=== PATIENT | male | born 1975 | race Caucasian/White ===

== ENCOUNTER 2017-02-06 16:43 | Emergency (ER) | payer OTHER ==
[2017-02-06 16:56] VITALS: BP 149/93
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
== END 2017-02-06 17:37 | disposition home or self-care (01) ==
LOC: UCEAST 16:43
DX: G89.29 Other chronic pain (principal); M51.36 Other intervertebral disc degeneration, lumbar region; F12.10 Cannabis abuse, uncomplicated; F17.210 Nicotine dependence, cigarettes, uncomplicated; E03.9 Hypothyroidism, unspecified; J45.909 Unspecified asthma, uncomplicated
CPT/HCPCS: 99212; G0463

== ENCOUNTER 2017-02-24 15:44 | Emergency (ER) | payer OTHER ==
[2017-02-24 15:52] VITALS: BP 139/78
[2017-02-24] MEDS ORDERED: HYDROmorphone* 1 MG/ML 1 ML SYR IV ONE ×2 (16:48→17:48)
[2017-02-24] MEDS ORDERED: Ondansetron INJ* 2 MG/ML VIAL IV ONE (16:48)
[2017-02-24] MEDS ORDERED: NS 0.9% 1000 ML* 1,000 ML IV ONE (16:48)
[2017-02-24 17:30] LABS: Hematocrit 37 % (42-52); Hemoglobin 12.7 g/dl (14.0-18.0); Mean Corpuscular HGB Conc 34 g/dl (31-36); Mean Corpuscular Hemoglobin 29 pg (27-31); Mean Corpuscular Volume 86 fL (80-94); Mean Platelet Volume 8 um3 (7.4-10.4); Red Blood Count 4.32 10^6/ul (4.0-5.4); Red Cell Distribution Width 14 % (10.5-15); White Blood Count 9.8 10^3/ul (3.5-10.8)
[2017-02-24 17:44] LABS: Albumin 3.7 g/dL (3.2-5.2); BUN/Creatinine Ratio 6.3 (8-20); Calcium 8.6 mg/dL (8.6-10.3); EGFR African American 177.2 (>60); EGFR Non-African American 137.8 (>60); Globulin 2.9 g/dL (2-4); Total Bilirubin 0.2 mg/dL (0.2-1.0); Total Protein 6.6 g/dL (6.4-8.9)
[2017-02-24] MEDS ORDERED: LORazepam INJ* 2 MG/ML 1 ML VIAL IV PUSH ONE (17:48)
[2017-02-24] MEDS ORDERED: Iohexol 300* (CONTRAST) 10 ML SDV IV ONE (17:48)
[2017-02-24] MEDS ORDERED: LORazepam INJ* 2 MG/ML 1 ML VIAL ONE (17:51)
[2017-02-24 18:12] LABS: Potassium 3.6 mmol/L (3.5-5.0)
--- NOTE | 2017-02-24 18:18 | RAD ---
INDICATION: Fall from ladder COMPARISON: CT of the brain July 22, 2012 TECHNIQUE: Contiguous axial sections of the brain were obtained from the skull base to the vertex without contrast. FINDINGS: The ventricles, cisterns and sulci are within normal limits. The navarro-white matter differentiation is adequately maintained and there is no sulcal effacement. No significant focal abnormality or mass effect is present. There is no evidence for intracranial hemorrhage. No significant focal osseous abnormality is present. The visualized portion of the paranasal sinuses and mastoid air cells appear clear. IMPRESSION: Normal CT of the brain.
--- NOTE | 2017-02-24 18:53 | RAD ---
INDICATION: Fall from ladder COMPARISON: None. TECHNIQUE: Axial source images were acquired with coronal and sagittal reformatting. FINDINGS: The cervical vertebrae are normally aligned. There is no fracture or focal bony lesion. The canal and foramina appear widely patent. The odontoid and the atlantodental interval are normal. Mild degenerative changes include loss of intervertebral disc height. On the coronal view there is mild multilevel uncovertebral hypertrophy. The prevertebral soft tissues appear normal. The visualized soft tissue elements of the neck are normal. The visualized lung apices are clear. IMPRESSION: MILD DEGENERATIVE CHANGES OF THE CERVICAL SPINE WITHOUT ACUTE FRACTURE OR DISLOCATION.
--- NOTE | 2017-02-24 19:02 | RAD ---
INDICATION: Back and groin pain after falling off of the latter. COMPARISON: None. TECHNIQUE: Multidetector CT images were obtained from the lung apices to the ischial tuberosities with 100 mL Omnipaque 300IV and oral contrast. Specific reformats of the thoracic spine were created and independently reviewed. CHEST: The lungs are grossly clear without nodules, masses or other focal abnormality. There are no significant pleural effusions bilaterally. The heart and thoracic aorta are normal in size and morphology. There is no mediastinal or hilar lymphadenopathy. ABDOMEN \T\ PELVIS: The liver, spleen, pancreas and adrenal glands are grossly normal in appearance. The gallbladder is normal. The kidneys are normal in appearance without focal mass, calcification or signs of hydronephrosis. The small and large bowel are not distended. A normal appendix is identified in the right lower quadrant (axial image 61). There is no gross retroperitoneal or mesenteric lymphadenopathy. The pelvic viscera is normal in appearance. The abdominal aorta and iliac arteries are normal in course and diameter. There are no traumatic fractures in the spine, ribs or pelvis. Multilevel degenerative changes include loss of intervertebral disc height with mild anterior marginal osteophyte formation at the thoracic spine. There is a very faint grade 1 anterolisthesis of L5 over S1 with a same level bilateral pars interarticularis defect. This is a chronic appearance. There is no acute inflammatory change in the soft tissue surrounding the L5 level. IMPRESSION: 1. No CT evidence of acute traumatic fracture or traumatic solid organ injury. 2. 

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
== END 2017-02-24 20:45 | disposition home or self-care (01) ==
LOC: ED 15:44
DX: M54.9 Dorsalgia, unspecified (principal); M54.5 Low back pain; F17.210 Nicotine dependence, cigarettes, uncomplicated
CPT/HCPCS: 36415; 70450; 71260; 72125; 72128; 74177; 80053; 83605; 85025; 96374; 96375; 99282; J1170; J2060; J2405; Q9967

== ENCOUNTER 2017-03-02 11:14 | Emergency (ER) | payer OTHER ==
[2017-03-02 11:21] VITALS: BP 151/95
[2017-03-02] MEDS ORDERED: Ketorolac INJ* 30 MG/ML 1 ML VIAL IV PUSH ONE (11:42)
[2017-03-02] MEDS ORDERED: oxyCODONE/Acetamin 5/325 MG* TAB PO ONE (11:42)
[2017-03-02] MEDS ORDERED: Orphenadrine Citrate IV* 30 MG/ML 2 ML VIAL IV ONE (11:43)
[2017-03-02] MEDS ORDERED: Dexamethasone IV* 4 MG/ML 5 ML VIAL (20 MG) IVPB ONE (11:43)
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
[2017-03-02] MEDS ORDERED: oxyCODONE TAB* 5 MG TAB PO ONE (13:26)
== END 2017-03-02 13:43 | disposition home or self-care (01) ==
LOC: ED 11:14
DX: M54.5 Low back pain (principal); F17.210 Nicotine dependence, cigarettes, uncomplicated
CPT/HCPCS: 96374; 96375; 99283; A9270-GY; J1885; J2360

== ENCOUNTER 2017-05-11 09:43 | Emergency (ER) | payer OTHER ==
[2017-05-11 09:52] VITALS: BP 180/89
[2017-05-11] MEDS ORDERED: LORazepam TAB(*) 1 MG PO ONE (10:33)
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
== END 2017-05-11 11:34 | disposition home or self-care (01) ==
LOC: ED 09:43
DX: R07.9 Chest pain, unspecified (principal); F17.210 Nicotine dependence, cigarettes, uncomplicated; E11.8 Type 2 diabetes mellitus with unspecified complications; Z04.1 Encounter for examination and observation following transport accident
CPT/HCPCS: 71250; 99282; A9270-GY

== ENCOUNTER 2017-07-28 07:30 | Emergency (ER) | payer OTHER ==
[2017-07-28 08:05] VITALS: BP 140/80
[2017-07-28] MEDS ORDERED: Ketorolac INJ* 60 MG/2 ML VIAL IM ONE (08:11)
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
== END 2017-07-28 08:45 | disposition short-term general hospital (02) ==
LOC: UCEAST 07:30
DX: M54.6 Pain in thoracic spine (principal); E11.9 Type 2 diabetes mellitus without complications; J45.909 Unspecified asthma, uncomplicated; F17.210 Nicotine dependence, cigarettes, uncomplicated; M25.511 Pain in right shoulder
CPT/HCPCS: 96372; 99213; G0463; J1885

== ENCOUNTER 2017-09-21 09:50 | Observation (INO) | payer OTHER ==
[2017-09-21] MEDS ORDERED: Naloxone* 0.4 MG/ML 10 ML VIAL ONE (09:59)
[2017-09-21] MEDS ORDERED: NS 0.9% 1000 ML* 1,000 ML IV ONE (10:21)
[2017-09-21] MEDS ORDERED: Naloxone* 0.4 MG/ML 1 ML VIAL IV PUSH ONE (10:30)
[2017-09-21 10:36] LABS: Hematocrit 45 % (42-52); Mean Corpuscular HGB Conc 33 g/dl (31-36); Mean Corpuscular Hemoglobin 30 pg (27-31); Mean Corpuscular Volume 89 fL (80-94); Mean Platelet Volume 9 um3 (7.4-10.4); Red Cell Distribution Width 14 % (10.5-15); White Blood Count 15.4 10^3/ul (3.5-10.8)
[2017-09-21 10:51] LABS: Acetaminophen < 15 mcg/mL; Alcohol < 10 mg/dL (<10); Salicylate < 2.50 mg/dL (<30)
[2017-09-21 10:53] LABS: ALT 82 U/L (7-52); AST 85 U/L (13-39); Albumin 4.8 g/dL (3.2-5.2); Alkaline Phosphatase 72 U/L (34-104); BUN/Creatinine Ratio 14.9 (8-20); Blood Urea Nitrogen 26 mg/dL (6-24); CO2 Carbon Dioxide 27 mmol/L (22-32); Calcium 9.4 mg/dL (8.6-10.3); Chloride 96 mmol/L (101-111); Creatine Kinase 604 U/L (10-223); EGFR African American 55.2 (>60); Globulin 3.3 g/dL (2-4); Glucose 171 mg/dL (70-100); Sodium 132 mmol/L (133-145); Total Protein 8.1 g/dL (6.4-8.9)
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
[2017-09-21 11:06] LABS: Anion Gap 9 mmol/L (2-11); Potassium 7.4 mmol/L (3.5-5.0)
[2017-09-21] MEDS ORDERED: Calcium CHLORIDE 10% SYRINGE* 1 GM/10 ML IV ONE (11:18)
[2017-09-21] MEDS ORDERED: Dextrose 50% VIAL 50 ml IV ONE (11:19)
[2017-09-21] MEDS ORDERED: Insulin REGULAR(*) 1 UNITS UNIT IV PUSH ONE (11:20)
[2017-09-21] MEDS ORDERED: Cyclobenzaprine TAB* 10 MG PO PRN (12:48)
[2017-09-21] MEDS ORDERED: cloNIDine TAB* 0.1 MG PO PRN (12:48)
[2017-09-21] MEDS ORDERED: Albuterol HFA INHALER* 8 gm MDI INH PRN (12:48)
[2017-09-21] MEDS ORDERED: traZODone TAB* 50 MG TAB PO PRN (12:48)
[2017-09-21] MEDS ORDERED: LORazepam INJ* 2 MG/ML 1 ML VIAL IV PUSH PRN (12:48)
[2017-09-21 12:51] LABS: BUN/Creatinine Ratio 18.9 (8-20); Calcium 8.1 mg/dL (8.6-10.3); EGFR Non-African American 62.2 (>60)
[2017-09-21 12:52] LABS: Potassium 6.4 mmol/L (3.5-5.0)
[2017-09-21] MEDS ORDERED: Ondansetron INJ* 2 MG/ML VIAL IV PRN (12:52)
[2017-09-21] MEDS ORDERED: Nicotine Inhaler* 10 MG AMP INH PRN (12:52)
[2017-09-21] MEDS ORDERED: Dextrose 50% Syringe 50 ML* 25 GM/50 ML SYRINGE IV PUSH PRN (12:52)
[2017-09-21] MEDS ORDERED: Nicotine GUM* 2 MG PO PRN (12:52)
[2017-09-21] MEDS ORDERED: Naloxone* 0.4 MG/ML 1 ML VIAL IV PUSH PRN (12:55)
[2017-09-21] MEDS ORDERED: Gabapentin CAP(*) 300 MG PO SCH (13:00)
[2017-09-21] MEDS ORDERED: Lidocaine PATCH 5%* 1 PATCH TRANSDERM SCH ×2 (13:00→21:00)
[2017-09-21] MEDS ORDERED: Pantoprazole IV* 40 MG IV SCH (13:00)
[2017-09-21] MEDS ORDERED: NS 0.9% 1000 ML* 1,000 ML IV SCH (13:00)
[2017-09-21] MEDS ORDERED: Enoxaparin(*) 40 MG/0.4 ML SYR SUBCUT SCH (13:00)
[2017-09-21] MEDS ORDERED: Nicotine PATCH 21 MG/24 HR* PATCH TRANSDERM SCH (13:00)
[2017-09-21 13:11] LABS: Troponin I 0.1 ng/mL (<0.04)
[2017-09-21] MEDS ORDERED: LORazepam INJ* 2 MG/ML 1 ML VIAL IV PUSH ONE (13:29)
[2017-09-21 13:35] VITALS: BP 101/73
[2017-09-21] MEDS ORDERED: Mouth Piece, Nicotine* 1 EACH CARTRIDGE INH ONE (14:00)
[2017-09-21] MEDS ORDERED: Sodium Polystyrene ORAL.SOL* 15 GM/60 ML BTL PO ONE (14:24)
[2017-09-21] MEDS ORDERED: Sodium Polystyrene ORAL.SOL* 15 GM/60 ML BTL ONE ×2 (14:26→14:30)
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
[2017-09-21] MEDS ORDERED: Insulin LISPRO* 1 UNITS UNIT SUBCUT SCH (16:30)
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
[2017-09-21] MEDS ORDERED: Lidocaine Patch REMOVE* 1 NOTE MISC SCH (21:00)
[2017-09-21] MEDS ORDERED: celeCOXIB CAP* 200 MG PO SCH (21:00)
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
== END 2017-09-21 15:00 | disposition left against medical advice (07) ==
LOC: ED 09:50 → INTOOBSV 12:21 → ICU 12:21
PROVIDERS: ADMIT Internal Medicine; ATTEND Internal Medicine
DX: T40.2X4A Poisoning by other opioids, undetermined, initial encounter (principal); R41.82 Altered mental status, unspecified; Y92.009 Unspecified place in unspecified non-institutional (private) residence as the place of occurrence of the external cause; J96.01 Acute respiratory failure with hypoxia; E87.5 Hyperkalemia; N17.9 Acute kidney failure, unspecified; E87.2 Acidosis; R74.8 Abnormal levels of other serum enzymes; R00.0 Tachycardia, unspecified; D72.829 Elevated white blood cell count, unspecified; E11.9 Type 2 diabetes mellitus without complications; Z79.84 Long term (current) use of oral hypoglycemic drugs; K21.9 Gastro-esophageal reflux disease without esophagitis; J45.909 Unspecified asthma, uncomplicated; F17.210 Nicotine dependence, cigarettes, uncomplicated; Z79.899 Other long term (current) drug therapy; M54.16 Radiculopathy, lumbar region; E78.00 Pure hypercholesterolemia, unspecified
CPT/HCPCS: 36415; 71010; 80048; 80053; 80320; 80329; 82550; 83036; 83605; 83880; 84484; 85025; 93005; 99282; A9270-GY; G0378; G0480; J2060; J2310

== ENCOUNTER 2021-01-08 15:05 | Inpatient (IN) ==
[2021-01-08] MEDS ORDERED: NS 0.9% 1000 ml BAG 1,000 ML IV ONE ×3 (15:13→17:42)
[2021-01-08 15:57] LABS: ABS Basophils 0.1 10^3/ul (0-0.2); ABS Eosinophils 0.1 10^3/ul (0-0.6); ABS Lymphocytes 1.3 10^3/ul (1.0-4.8); ABS Monocytes 0.7 10^3/ul (0-0.8); ABS Neutrophils 9.7 10^3/ul (1.5-7.7); Eosinophil % 0.4 %; Hematocrit 62 % (42-52); Hemoglobin 18.9 g/dL (14.0-18.0); Lymphocyte % 11.1 %; Mean Corpuscular HGB Conc 30 g/dL (31-36); Mean Corpuscular Hemoglobin 30 pg (27-31); Mean Corpuscular Volume 98 fL (80-94); Mean Platelet Volume 10.3 fL (7.4-10.4); Nucleated Red Blood Cells % 0.1; Platelet Count 327 10^3/uL (150-450); Red Blood Count 6.35 10^6 /uL (4.18-5.48); Red Cell Distribution Width 15 % (10-15); White Blood Count 11.7 10^3/uL (3.5-10.8)
[2021-01-08] MEDS ORDERED: LORazepam 2 mg VIAL 1 ml IV PUSH ONE (15:58)
[2021-01-08] MEDS ORDERED: diPHENhydraMINE IV 50 MG/ML 1 ml VIAL (BENADRYL) IV ONE (15:58)
[2021-01-08] MEDS ORDERED: Lorazepam PYXIS KEY PRN (15:58)
[2021-01-08] MEDS ORDERED: Haloperidol 5 mg/ml SDV IV/IM 5 MG/ML AMP IM ONE (15:58)
[2021-01-08] MEDS ORDERED: LORazepam 2 mg VIAL 1 ml ONE (15:59)
[2021-01-08 16:07] LABS: Urine Appearance Clear; Urine Bilirubin Negative (Negative); Urine Blood Negative (Negative); Urine Color Straw; Urine Glucose 3+(>=500 mg/dL) (Negative); Urine Ketones Negative (Negative); Urine Nitrite Negative (Negative); Urine Protein Negative (Negative); Urine Specific Gravity 1.028 (1.002-1.030); Urine Urobilinogen Negative (Negative)
[2021-01-08] MEDS ORDERED: Propofol 10 mg/ml 100 ML BTL 100 ML IV ONE (16:20)
[2021-01-08] MEDS ORDERED: Etomidate 20 mg/10 ml 2 MG/ML 10 ml VIAL IV ONE (16:20)
[2021-01-08] MEDS ORDERED: Rocuronium 50 mg VIAL 10 mg/ml 5 ml VIAL (50 mg) IV ONE (16:20)
[2021-01-08 16:22] LABS: INR 0.94 (0.82-1.09)
[2021-01-08] MEDS ORDERED: Propofol 10 mg/ml 100 ML BTL 100 ML ONE (16:26)
[2021-01-08 16:37] LABS: Albumin 4.8 g/dL (3.2-5.2); CO2 Carbon Dioxide 27 mmol/L (22-32); Calcium 11.6 mg/dL (8.6-10.3); Chloride 84 mmol/L (101-111); Sodium 126 mmol/L (135-145)
[2021-01-08 16:38] LABS: Anion Gap 15 mmol/L (2-11)
[2021-01-08 16:43] LABS: BUN/Creatinine Ratio 22.5 (8-20); Blood Urea Nitrogen 54 mg/dL (6-24); EGFR African American 35.6 (>60); EGFR Non-African American 29.4 (>60)
[2021-01-08 16:44] LABS: Alkaline Phosphatase 164 U/L (34-104); Globulin 4.6 g/dL (2-4); Lipase 83 U/L (11.0-82.0); Total Protein 9.4 g/dL (6.4-8.9)
[2021-01-08 16:45] LABS: Troponin I 0.03 ng/mL (<0.03)
[2021-01-08 16:50] LABS: Urine Benzodiazepine Screen None Detected (None Detect); Urine Cannabinoids Screen None Detected (None Detect); Urine Opiates Screen None Detected (None Detect)
[2021-01-08 16:53] LABS: TSH Ultra Thyroid Stim Horm 1.69 mcIU/mL (0.34-5.60)
[2021-01-08 16:55] LABS: Acetaminophen < 15 mcg/mL; Alcohol, S < 10 mg/dL (<10); Salicylate < 2.50 mg/dL (<30)
[2021-01-08 17:09] LABS: ALT 37 U/L (7-52); Creatine Kinase 128 U/L (10-223)
[2021-01-08 17:11] LABS: Glucose 1793 mg/dL (70-100)
[2021-01-08] MEDS ORDERED: NS 0.9% w/ 20 Meq KCL 1000 ml 1,000 ML IV SCH (18:00)
[2021-01-08] MEDS ORDERED: [UNRECOGNIZED DRUG - REMARK] IV ONE (18:00)
[2021-01-08] MEDS ORDERED: Propofol 10 mg/ml 100 ML BTL 100 ML IV SCH (18:00)
[2021-01-08] MEDS ORDERED: Insulin REGULAR drip 100 units/100 ml per Titration Protocol IV SCH (18:00)
[2021-01-08] MEDS: Pantoprazole VIAL 40 MG VIAL IV SCH (18:06)
[2021-01-08] MEDS ORDERED: Lactated Ringers 1000 ml BAG 1,000 ML IV SCH (20:00)
[2021-01-08] MEDS ORDERED: fentaNYL INFUSION 50 MCG/ML 2,500 MCG/50 ML BAG IV SCH (20:00)
[2021-01-08] MEDS ORDERED: fentaNYL 100 mcg/2 ml 50 MCG/ML VIAL ONE (20:16)
[2021-01-08 20:19] LABS: Glucose Confirmatory 1168 mg/dL (70-100)
[2021-01-08 20:46] LABS: Chloride, Whole Blood 117 mmol/L (98-107); Potassium, Whole Blood 3.1 mmol/L (3.4-4.5); Sodium, Whole Blood 159 mmol/L (136-145)
[2021-01-08 20:52] LABS: Amylase 23 U/L (29-103); BUN/Creatinine Ratio 27.7 (8-20); Blood Urea Nitrogen 52 mg/dL (6-24); CO2 Carbon Dioxide 32 mmol/L (22-32); Calcium 10.5 mg/dL (8.6-10.3); Cholesterol 312 mg/dL; EGFR African American 47.2 (>60); HDL Cholesterol 24.8 mg/dL
[2021-01-08 21:09] LABS: Anion Gap 9 mmol/L (2-11); Chloride 112 mmol/L (101-111); Glucose 880 mg/dL (70-100); Sodium 153 mmol/L (135-145); Triglycerides 1828 mg/dL
[2021-01-08 21:22] LABS: LDL Cholesterol Direct 90 mg/dL
[2021-01-08 21:54] LABS: Glucose Confirmatory 706 mg/dL (70-100)
[2021-01-08 22:16] LABS: Potassium, Whole Blood 4.5 mmol/L (3.4-4.5)
[2021-01-08] MEDS ORDERED: Insulin Infusion 100unit/100mL 100 UNIT/100 ML BAG IV SCH (22:18)
[2021-01-08 22:30] LABS: Phosphorus 2.4 mg/dL (2.5-5.0)
[2021-01-08] MEDS ORDERED: Piperacillin/Tazobac ADVAN 3.375 GM in NS 0.9% 100 ml BAG 100 ML IV ONE (22:36)
[2021-01-08 22:39] LABS: Urine Chloride Concentration < 22 mmol/L; Urine Potassium Concentration 32.2 mmol/L; Urine Sodium Concentration < 18 mmol/L
[2021-01-08] MEDS ORDERED: Zosyn per Pharmacy NOTE FOLLOW UP SCH (23:00)
[2021-01-08] MEDS ORDERED: Acetaminophen IV 1 GM/100ML 100 ML IVPB ONE (23:06)
[2021-01-08 23:18] LABS: Influenza A Molecular Negative (Negative); Influenza B Molecular Negative (Negative)
[2021-01-08] MEDS: Midazolam 50 MG VIAL IV DRIP 50 ML IV SCH (23:23)
[2021-01-08] MEDS: Potassium Chloride IV 40 MEQ in Lactated Ringers 1000 ml BAG 1,000 ML IVPB SCH (23:26)
[2021-01-08] MEDS: Lactated Ringers 1000 ml BAG 1,000 ML IV SCH (23:26)
[2021-01-09 00:38] LABS: Calcium 9.9 mg/dL (8.6-10.3); Potassium 4.4 mmol/L (3.5-5.0)
[2021-01-09 00:43] LABS: BUN/Creatinine Ratio 31.7 (8-20); EGFR African American 63.7 (>60); EGFR Non-African American 52.6 (>60)
[2021-01-09 00:48] LABS: Glucose Confirmatory 474 mg/dL (70-100)
[2021-01-09 01:02] LABS: Magnesium 2.7 mg/dL (1.9-2.7)
[2021-01-09 01:07] LABS: Phosphorus 2.9 mg/dL (2.5-5.0)
[2021-01-09] MEDS: Lactated Ringers 1000 ml BAG 1,000 ML IV SCH ×2 (01:35→06:20)
[2021-01-09] MEDS: Lactated Ringers 1000 ml BAG 1,000 ML IV ONE (01:45)
[2021-01-09] MEDS: Chlorhexidine MOUTHWASH 0.12% 15 ML UDC SWISH SPIT SCH ×4 (02:46→22:24)
[2021-01-09] MEDS: Heparin 5000 UNITS/ML 1 mL VIAL SUBCUT SCH ×4 (03:11→22:24)
[2021-01-09 03:55] LABS: ABS Eosinophils 0.2 10^3/ul (0-0.6); ABS Lymphocytes 3.7 10^3/ul (1.0-4.8); ABS Monocytes 0.7 10^3/ul (0-0.8); ABS Neutrophils 7.8 10^3/ul (1.5-7.7); Eosinophil % 1.3 %; Hematocrit 43 % (42-52); Hemoglobin 14.4 g/dL (14.0-18.0); Lymphocyte % 29.7 %; Mean Corpuscular HGB Conc 34 g/dL (31-36); Mean Corpuscular Hemoglobin 28 pg (27-31); Mean Corpuscular Volume 85 fL (80-94); Mean Platelet Volume 8.6 fL (7.4-10.4); Platelet Count 149 10^3/uL (150-450); Red Blood Count 5.05 10^6 /uL (4.18-5.48); Red Cell Distribution Width 13 % (10-15); White Blood Count 12.4 10^3/uL (3.5-10.8)
[2021-01-09] MEDS: ZOSYN 3.375 GM Q8H per EXTENDED INFUSION IV SCH ×3 (04:05→20:32)
[2021-01-09 04:12] LABS: ALT 26 U/L (7-52); AST 24 U/L (13-39); Albumin 3.1 g/dL (3.2-5.2); Alkaline Phosphatase 90 U/L (34-104); BUN/Creatinine Ratio 29.5 (8-20); Blood Urea Nitrogen 36 mg/dL (6-24); CO2 Carbon Dioxide 36 mmol/L (22-32); Calcium 9.1 mg/dL (8.6-10.3); EGFR African American 77.7 (>60); EGFR Non-African American 64.2 (>60); Glucose 315 mg/dL (70-100); Magnesium 2.1 mg/dL (1.9-2.7); Phosphorus 2.7 mg/dL (2.5-5.0); Potassium 3.9 mmol/L (3.5-5.0); Total Protein 6.1 g/dL (6.4-8.9); Triglycerides 784 mg/dL
[2021-01-09 04:17] LABS: Anion Gap 3 mmol/L (2-11); Chloride 121 mmol/L (101-111); Sodium 160 mmol/L (135-145)
[2021-01-09] MEDS: D5W 1/2 NS 40 Meq KCL 1000 ml 1,000 ML IV SCH ×2 (04:36→10:15)
[2021-01-09] MEDS: NS 0.9% 1000 ml BAG 1,000 ML IV ONE ×2 (04:38→06:20)
[2021-01-09] MEDS ORDERED: Insulin GLARGINE 100 un/ml 10 ml VIAL SUBCUT ONE (05:09)
[2021-01-09] MEDS: Potassium Chloride IV 40 MEQ in Lactated Ringers 1000 ml BAG 1,000 ML IVPB SCH (06:20)
[2021-01-09] MEDS ORDERED: NS 0.9% 1000 ml BAG 1,000 ML IV ONE ×2 (06:45→23:15)
[2021-01-09] MEDS: Dexmedetomidine 1,000 MCG in NS 0.9% 250 ml 240 ML IV SCH (08:36)
[2021-01-09 08:46] LABS: BUN/Creatinine Ratio 24.8 (8-20); Blood Urea Nitrogen 28 mg/dL (6-24); CO2 Carbon Dioxide 33 mmol/L (22-32); Calcium 7.8 mg/dL (8.6-10.3); EGFR African American 84.9 (>60); EGFR Non-African American 70.2 (>60); Glucose 333 mg/dL (70-100); Potassium 3.8 mmol/L (3.5-5.0)
[2021-01-09 08:49] LABS: Anion Gap 3 mmol/L (2-11); Chloride 125 mmol/L (101-111); Sodium 161 mmol/L (135-145)
[2021-01-09 08:50] LABS: Troponin I 0.06 ng/mL (<0.03)
[2021-01-09] MEDS: Pantoprazole VIAL 40 MG VIAL IV SCH (09:36)
[2021-01-09 11:59] LABS: BUN/Creatinine Ratio 22.9 (8-20); Calcium 7.9 mg/dL (8.6-10.3); EGFR African American 92.4 (>60); EGFR Non-African American 76.4 (>60); Potassium 3.7 mmol/L (3.5-5.0)
[2021-01-09] MEDS ORDERED: Acetaminophen IV 1 GM/100ML 100 ML ONE (13:17)
[2021-01-09] MEDS: Acetaminophen IV 1 GM/100ML 100 ML IVPB PRN (13:18)
[2021-01-09] MEDS ORDERED: Dextrose 50% Syringe 50 ml 25 GM/50 ML SYRINGE IV PUSH PRN (15:23)
[2021-01-09] MEDS: NS 0.45% KCl 20 Meq 1000 ml 1,000 ML IV SCH (16:27)
[2021-01-09 18:24] LABS: Troponin I 0.07 ng/mL (<0.03)
[2021-01-09] MEDS ORDERED: Midazolam 2 mg/2 ml VIAL 1 mg/ml 2 ml VIAL (2 mg) IV SLOW PU ONE ×2 (19:41→23:52)
[2021-01-09 20:11] LABS: BUN/Creatinine Ratio 17.8 (8-20); Blood Urea Nitrogen 19 mg/dL (6-24); CO2 Carbon Dioxide 34 mmol/L (22-32); Calcium 7.8 mg/dL (8.6-10.3); EGFR African American 90.4 (>60); EGFR Non-African American 74.7 (>60); Glucose 265 mg/dL (70-100); Potassium 3.7 mmol/L (3.5-5.0)
[2021-01-09 20:19] LABS: Chloride 125 mmol/L (101-111); Sodium 159 mmol/L (135-145)
[2021-01-09] MEDS ORDERED: Midazolam 5 mg/5 ml VIAL 1 mg/ml 5 ml VIAL (5 mg) ONE (22:41)
[2021-01-09] MEDS ORDERED: fentaNYL 100 mcg/2 ml 50 MCG/ML VIAL ONE (22:43)
[2021-01-09] MEDS ORDERED: Midazolam 5 mg/5 ml VIAL 1 mg/ml 5 ml VIAL (5 mg) IV SLOW PU ONE (22:47)
[2021-01-09] MEDS ORDERED: Midazolam 2 mg/2 ml VIAL 1 mg/ml 2 ml VIAL (2 mg) ONE (23:54)
[2021-01-10 00:12] LABS: BUN/Creatinine Ratio 18.1 (8-20); Calcium 7.3 mg/dL (8.6-10.3); EGFR African American 74.2 (>60); EGFR Non-African American 61.3 (>60); Potassium 4.3 mmol/L (3.5-5.0)
[2021-01-10] MEDS: NS 0.45% KCl 20 Meq 1000 ml 1,000 ML IV SCH ×2 (00:49→08:59)
[2021-01-10] MEDS ORDERED: Lactated Ringers 1000 ml BAG 1,000 ML IV ONE (02:32)
[2021-01-10] MEDS ORDERED: NS 0.9% 1000 ml BAG 1,000 ML IV ONE (02:32)
[2021-01-10] MEDS ORDERED: Vancomycin 1,250 MG in NS 0.9% 250 ml 250 ML IVPB ONE (04:30)
[2021-01-10] MEDS: Acetaminophen IV 1 GM/100ML 100 ML IVPB PRN (04:35)
[2021-01-10] MEDS: ZOSYN 3.375 GM Q8H per EXTENDED INFUSION IV SCH ×3 (04:36→21:35)
[2021-01-10] MEDS ORDERED: Vancomycin per Pharmacy 1 EA NOTE FOLLOW UP SCH (05:00)
[2021-01-10] MEDS ORDERED: Norepinephrine 16MCG/ML IVPRE 4,000 MCG/250 ML BAG IV SCH (05:00)
[2021-01-10] MEDS: Heparin 5000 UNITS/ML 1 mL VIAL SUBCUT SCH ×3 (06:41→21:36)
[2021-01-10 06:42] LABS: Albumin 2.4 g/dL (3.2-5.2); Magnesium 1.4 mg/dL (1.9-2.7); Potassium 4.1 mmol/L (3.5-5.0); Total Bilirubin 0.5 mg/dL (0.2-1.0)
[2021-01-10] MEDS ORDERED: Magnesium Sulfate 2 gm BAG 2 GM/50 ML BAG IVPB ONE (06:43)
[2021-01-10 06:49] LABS: BUN/Creatinine Ratio 19.4 (8-20); EGFR African American 72.9 (>60); EGFR Non-African American 60.2 (>60); Globulin 2.3 g/dL (2-4); Phosphorus 1.7 mg/dL (2.5-5.0); Total Protein 4.7 g/dL (6.4-8.9)
[2021-01-10] MEDS: Pantoprazole VIAL 40 MG VIAL IV SCH (07:45)
[2021-01-10] MEDS: Chlorhexidine MOUTHWASH 0.12% 15 ML UDC SWISH SPIT SCH ×4 (07:45→17:36)
[2021-01-10] MEDS ORDERED: Insulin GLARGINE 100 un/ml 10 ml VIAL SUBCUT SCH (09:00)
[2021-01-10 09:14] LABS: ABS Basophils 0.1 10^3/ul (0-0.2); ABS Eosinophils 0.5 10^3/ul (0-0.6); ABS Lymphocytes 3.6 10^3/ul (1.0-4.8); ABS Monocytes 0.7 10^3/ul (0-0.8); ABS Neutrophils 5.9 10^3/ul (1.5-7.7); Eosinophil % 4.4 %; Hematocrit 35 % (42-52); Hemoglobin 11.4 g/dL (14.0-18.0); Lymphocyte % 33.3 %; Mean Corpuscular HGB Conc 33 g/dL (31-36); Mean Corpuscular Hemoglobin 29 pg (27-31); Mean Corpuscular Volume 88 fL (80-94); Nucleated Red Blood Cells % 0.1; Red Blood Count 3.96 10^6 /uL (4.18-5.48); Red Cell Distribution Width 14 % (10-15); White Blood Count 10.8 10^3/uL (3.5-10.8)
[2021-01-10 10:05] LABS: C Reactive Protein 9.62 mg/L (<8.01)
[2021-01-10] MEDS: Dexmedetomidine 1,000 MCG in NS 0.9% 250 ml 240 ML IV SCH (10:30)
[2021-01-10] MEDS: Midazolam 50 MG VIAL IV DRIP 50 ML IV SCH (11:20)
[2021-01-10 12:03] LABS: Mean Platelet Volume 8.6 fL (7.4-10.4); Platelet Count 93 10^3/uL (150-450)
[2021-01-10 12:50] LABS: Calcium 6.9 mg/dL (8.6-10.3); EGFR Non-African American 66.1 (>60); Potassium 3.8 mmol/L (3.5-5.0)
[2021-01-10] MEDS ORDERED: Potassium Phosphate IV 10 MMOLE in NS 0.9% 250 ml 250 ML IVPB ONE (14:00)
[2021-01-10] MEDS ORDERED: Furosemide 20 mg/2 ml IV VIAL IV SLOW PU ONE (17:34)
[2021-01-10] MEDS: Vancomycin 1,250 MG in NS 0.9% 250 ml 250 ML IVPB SCH (17:35)
[2021-01-10] MEDS ORDERED: KCL 10 MEQ/50 ML IVPREMIX 10 MEQ/50 ML BAG IV SCH (17:54)
[2021-01-10] MEDS ORDERED: Succinylcholine 200 mg VIAL 20 mg/ml 10 ml VIAL (200 mg) ONE (18:07)
[2021-01-10 21:36] LABS: ABS Eosinophils 0.3 10^3/ul (0-0.6); ABS Lymphocytes 2.1 10^3/ul (1.0-4.8); ABS Monocytes 0.4 10^3/ul (0-0.8); ABS Neutrophils 4.5 10^3/ul (1.5-7.7); Eosinophil % 4.4 %; Hematocrit 34 % (42-52); Hemoglobin 11.4 g/dL (14.0-18.0); Lymphocyte % 28.3 %; Mean Corpuscular HGB Conc 33 g/dL (31-36); Mean Corpuscular Hemoglobin 29 pg (27-31); Mean Corpuscular Volume 86 fL (80-94); Nucleated Red Blood Cells % 0.1; Platelet Count 85 10^3/uL (150-450); Red Blood Count 3.95 10^6 /uL (4.18-5.48); Red Cell Distribution Width 13 % (10-15); White Blood Count 7.4 10^3/uL (3.5-10.8)
[2021-01-10 21:55] LABS: Calcium 6.9 mg/dL (8.6-10.3); EGFR African American 92.4 (>60); EGFR Non-African American 76.4 (>60)
[2021-01-11] MEDS: ZOSYN 3.375 GM Q8H per EXTENDED INFUSION IV SCH (04:08)
[2021-01-11 04:25] LABS: ABS Eosinophils 0.3 10^3/ul (0-0.6); ABS Lymphocytes 2.2 10^3/ul (1.0-4.8); ABS Monocytes 0.3 10^3/ul (0-0.8); ABS Neutrophils 3.6 10^3/ul (1.5-7.7); Eosinophil % 4.6 %; Hematocrit 34 % (42-52); Hemoglobin 11.1 g/dL (14.0-18.0); Lymphocyte % 34.7 %; Mean Corpuscular HGB Conc 33 g/dL (31-36); Mean Corpuscular Hemoglobin 29 pg (27-31); Mean Corpuscular Volume 87 fL (80-94); Mean Platelet Volume 8.7 fL (7.4-10.4); Platelet Count 77 10^3/uL (150-450); Red Blood Count 3.86 10^6 /uL (4.18-5.48); Red Cell Distribution Width 13 % (10-15); White Blood Count 6.5 10^3/uL (3.5-10.8)
[2021-01-11 04:37] LABS: Albumin 2.6 g/dL (3.2-5.2); BUN/Creatinine Ratio 21.6 (8-20); Calcium 6.9 mg/dL (8.6-10.3); EGFR African American 113.3 (>60); EGFR Non-African American 93.6 (>60); Globulin 2.6 g/dL (2-4); Potassium 3.5 mmol/L (3.5-5.0); Total Bilirubin 0.5 mg/dL (0.2-1.0); Total Protein 5.2 g/dL (6.4-8.9)
[2021-01-11] MEDS ORDERED: Potassium Phosphate IV 10 MMOLE in NS 0.9% 250 ml 250 ML IVPB ONE (04:54)
[2021-01-11] MEDS ORDERED: KCL 20 MEQ/100 ML IVPREMIX 20 MEQ/100 ML BAG IV ONE (04:54)
[2021-01-11] MEDS: Vancomycin 1,250 MG in NS 0.9% 250 ml 250 ML IVPB SCH ×2 (06:22→18:36)
[2021-01-11] MEDS: Heparin 5000 UNITS/ML 1 mL VIAL SUBCUT SCH (06:34)
[2021-01-11 08:31] LABS: INR 1.07 (0.82-1.09)
[2021-01-11] MEDS ORDERED: Insulin GLARGINE 100 un/ml 10 ml VIAL SUBCUT SCH (09:00)
[2021-01-11] MEDS ORDERED: Lorazepam PYXIS KEY ONE (09:22)
[2021-01-11] MEDS ORDERED: Haloperidol 5 mg/ml SDV IV/IM 5 MG/ML AMP ONE (09:22)
[2021-01-11] MEDS ORDERED: LORazepam 2 mg VIAL 1 ml ONE (09:34)
[2021-01-11] MEDS ORDERED: LORazepam 2 mg VIAL 1 ml IV PUSH ONE (09:42)
[2021-01-11] MEDS ORDERED: Lorazepam PYXIS KEY PRN (09:42)
[2021-01-11] MEDS ORDERED: Haloperidol 5 mg/ml SDV IV/IM 5 MG/ML AMP IV SLOW PU ONE (09:43)
[2021-01-11] MEDS ORDERED: diPHENhydraMINE IV 50 MG/ML 1 ml VIAL (BENADRYL) IV ONE (09:50)
[2021-01-11] MEDS: LORazepam 2 mg VIAL 1 ml ONE (09:57)
[2021-01-11] MEDS: diPHENhydraMINE IV 50 MG/ML 1 ml VIAL (BENADRYL) ONE (09:59)
[2021-01-11] MEDS ORDERED: Furosemide 20 mg/2 ml IV VIAL IV SLOW PU ONE (10:56)
[2021-01-11] MEDS ORDERED: D5W 1000 ml BAG 1,000 ML IV SCH (11:00)
[2021-01-11] MEDS ORDERED: Albuterol/Ipratropium NEB.SOL (2.5/0.5 MG) 3 ML NEB.SOLN INH SCH (11:00)
[2021-01-11] MEDS ORDERED: Albuterol/Ipratropium NEB.SOL (2.5/0.5 MG) 3 ML NEB.SOLN INH PRN (11:02)
[2021-01-11] MEDS: KCL 10 MEQ/50 ML IVPREMIX 10 MEQ/50 ML BAG IV SCH ×2 (11:38→13:41)
[2021-01-11] MEDS: Pantoprazole VIAL 40 MG VIAL IV SCH (11:38)
[2021-01-11] MEDS: cefTRIAXone 2 GM ADDV.VIAL 2 GM in NS 0.9% 100 ml BAG 100 ML IV SCH (11:39)
[2021-01-11] MEDS ORDERED: Perflutren Lipid Microsphere 3 ML VIAL ONE (13:20)
[2021-01-11 14:54] LABS: BUN/Creatinine Ratio 20.9 (8-20); Calcium 6.8 mg/dL (8.6-10.3); EGFR Non-African American 90.1 (>60); Potassium 4.4 mmol/L (3.5-5.0)
[2021-01-11 18:13] LABS: Troponin I 0.01 ng/mL (<0.03)
[2021-01-11] MEDS: Dexmedetomidine 1,000 MCG in NS 0.9% 250 ml 240 ML IV SCH (19:02)
[2021-01-12 04:15] LABS: ABS Eosinophils 0.2 10^3/ul (0-0.6); ABS Lymphocytes 1.6 10^3/ul (1.0-4.8); ABS Monocytes 0.3 10^3/ul (0-0.8); ABS Neutrophils 2.9 10^3/ul (1.5-7.7); Eosinophil % 4.2 %; Hematocrit 34 % (42-52); Hemoglobin 11.3 g/dL (14.0-18.0); Lymphocyte % 31.6 %; Mean Corpuscular HGB Conc 34 g/dL (31-36); Mean Corpuscular Hemoglobin 29 pg (27-31); Mean Corpuscular Volume 86 fL (80-94); Mean Platelet Volume 8.9 fL (7.4-10.4); Nucleated Red Blood Cells % 0.1; Platelet Count 79 10^3/uL (150-450); Red Cell Distribution Width 13 % (10-15)
[2021-01-12 04:29] LABS: Albumin 2.6 g/dL (3.2-5.2); BUN/Creatinine Ratio 21.1 (8-20); Calcium 7.2 mg/dL (8.6-10.3); EGFR African American 134.2 (>60); EGFR Non-African American 110.9 (>60); Globulin 2.6 g/dL (2-4); Magnesium 1.9 mg/dL (1.9-2.7); Phosphorus 1.9 mg/dL (2.5-5.0); Potassium 3.7 mmol/L (3.5-5.0); Total Bilirubin 0.5 mg/dL (0.2-1.0); Total Protein 5.2 g/dL (6.4-8.9)
[2021-01-12] MEDS ORDERED: Vancomycin Trough Check NOTE FOLLOW UP ONE (06:00)
[2021-01-12] MEDS: Vancomycin 1,250 MG in NS 0.9% 250 ml 250 ML IVPB SCH ×3 (06:25→22:23)
[2021-01-12] MEDS ORDERED: Potassium Phosphate IV 10 MMOLE in NS 0.9% 250 ml 250 ML IVPB ONE (08:00)
[2021-01-12] MEDS: Dexmedetomidine 1,000 MCG in NS 0.9% 250 ml 240 ML IV SCH ×2 (08:58→20:42)
[2021-01-12] MEDS ORDERED: Insulin GLARGINE 100 un/ml 10 ml VIAL SUBCUT SCH (09:00)
[2021-01-12] MEDS: Pantoprazole VIAL 40 MG VIAL IV SCH (09:03)
[2021-01-12] MEDS ORDERED: diPHENhydraMINE IV 50 MG/ML 1 ml VIAL (BENADRYL) ONE (09:13)
[2021-01-12] MEDS ORDERED: Lorazepam PYXIS KEY PRN ×3 (09:13→16:42)
[2021-01-12] MEDS ORDERED: Lorazepam PYXIS KEY ONE ×2 (09:13→20:37)
[2021-01-12] MEDS ORDERED: LORazepam 2 mg VIAL 1 ml IV PUSH ONE (09:14)
[2021-01-12] MEDS ORDERED: LORazepam 2 mg VIAL 1 ml ONE (09:14)
[2021-01-12] MEDS: LORazepam 2 mg VIAL 1 ml ONE (09:17)
[2021-01-12] MEDS: diPHENhydraMINE IV 50 MG/ML 1 ml VIAL (BENADRYL) ONE (09:18)
[2021-01-12] MEDS: cefTRIAXone 2 GM ADDV.VIAL 2 GM in NS 0.9% 100 ml BAG 100 ML IV SCH (11:05)
[2021-01-12] MEDS: D5LR 20 MEQ KCL 1000 ml BAG 1,000 ML IV SCH (14:36)
[2021-01-12] MEDS ORDERED: LORazepam 2 mg VIAL 1 ml IV PUSH SCH (15:00)
[2021-01-12] MEDS ORDERED: LORazepam 2 mg VIAL 1 ml IV PUSH PRN (15:18)
[2021-01-12 16:04] LABS: C Reactive Protein 14.54 mg/L (<8.01)
[2021-01-12] MEDS: LORazepam 2 mg VIAL 1 ml IV PUSH SCH ×2 (17:07→20:42)
[2021-01-12] MEDS: diPHENhydraMINE IV 50 MG/ML 1 ml VIAL (BENADRYL) IV PRN ×2 (17:41→23:57)
[2021-01-12 20:40] LABS: HIT ELISA < 0.075 OD (<0.400)
[2021-01-13] MEDS: LORazepam 2 mg VIAL 1 ml IV PUSH SCH ×6 (01:05→20:47)
[2021-01-13 04:50] LABS: ABS Eosinophils 0.2 10^3/ul (0-0.6); ABS Lymphocytes 1.6 10^3/ul (1.0-4.8); ABS Monocytes 0.4 10^3/ul (0-0.8); ABS Neutrophils 2.4 10^3/ul (1.5-7.7); Eosinophil % 3.4 %; Hematocrit 34 % (42-52); Hemoglobin 11.5 g/dL (14.0-18.0); Lymphocyte % 35.2 %; Mean Corpuscular HGB Conc 34 g/dL (31-36); Mean Corpuscular Hemoglobin 29 pg (27-31); Mean Corpuscular Volume 85 fL (80-94); Mean Platelet Volume 8.6 fL (7.4-10.4); Platelet Count 95 10^3/uL (150-450); Red Blood Count 4.04 10^6 /uL (4.18-5.48); Red Cell Distribution Width 13 % (10-15); White Blood Count 4.6 10^3/uL (3.5-10.8)
[2021-01-13 05:03] LABS: Albumin 2.6 g/dL (3.2-5.2); Albumin/Globulin Ratio 0.9 (1-3); BUN/Creatinine Ratio 18.1 (8-20); Calcium 7.3 mg/dL (8.6-10.3); EGFR African American 142.8 (>60); EGFR Non-African American 118.1 (>60); Globulin 2.8 g/dL (2-4); Magnesium 1.8 mg/dL (1.9-2.7); Phosphorus 2.3 mg/dL (2.5-5.0); Potassium 3.8 mmol/L (3.5-5.0); Total Bilirubin 0.4 mg/dL (0.2-1.0); Total Protein 5.4 g/dL (6.4-8.9)
[2021-01-13] MEDS: diPHENhydraMINE IV 50 MG/ML 1 ml VIAL (BENADRYL) IV PRN ×3 (05:19→23:43)
[2021-01-13] MEDS: Vancomycin 1,250 MG in NS 0.9% 250 ml 250 ML IVPB SCH (06:30)
[2021-01-13] MEDS ORDERED: Magnesium Sulfate IV 3 GM in NS 0.9% 100 ml BAG 100 ML IVPB ONE (07:36)
[2021-01-13] MEDS: Dexmedetomidine 1,000 MCG in NS 0.9% 250 ml 240 ML IV SCH ×2 (07:45→19:09)
[2021-01-13] MEDS: Pantoprazole VIAL 40 MG VIAL IV SCH (08:45)
[2021-01-13] MEDS: D5LR 20 MEQ KCL 1000 ml BAG 1,000 ML IV SCH (10:48)
[2021-01-13] MEDS: cefTRIAXone 2 GM ADDV.VIAL 2 GM in NS 0.9% 100 ml BAG 100 ML IV SCH (11:28)
[2021-01-13] MEDS: Enoxaparin 40 MG/0.4 ML SYR SUBCUT SCH (12:52)
[2021-01-13] MEDS ORDERED: Ziprasidone IM 20 mg VIAL 1 ml VIAL IM ONE (16:36)
[2021-01-13] MEDS ORDERED: Ziprasidone IM 20 mg VIAL 1 ml VIAL ONE (16:38)
[2021-01-14] MEDS: LORazepam 2 mg VIAL 1 ml IV PUSH SCH ×3 (00:25→07:44)
[2021-01-14] MEDS: Dexmedetomidine 1,000 MCG in NS 0.9% 250 ml 240 ML IV SCH (03:57)
[2021-01-14 04:20] LABS: ABS Eosinophils 0.2 10^3/ul (0-0.6); ABS Lymphocytes 1.7 10^3/ul (1.0-4.8); ABS Monocytes 0.5 10^3/ul (0-0.8); ABS Neutrophils 2.5 10^3/ul (1.5-7.7); Eosinophil % 3.6 %; Hematocrit 33 % (42-52); Hemoglobin 11.5 g/dL (14.0-18.0); Lymphocyte % 35.4 %; Mean Corpuscular HGB Conc 35 g/dL (31-36); Mean Corpuscular Hemoglobin 29 pg (27-31); Mean Corpuscular Volume 82 fL (80-94); Mean Platelet Volume 8.3 fL (7.4-10.4); Platelet Count 118 10^3/uL (150-450); Red Blood Count 3.94 10^6 /uL (4.18-5.48); Red Cell Distribution Width 13 % (10-15); White Blood Count 4.9 10^3/uL (3.5-10.8)
[2021-01-14 04:33] LABS: BUN/Creatinine Ratio 11.8 (8-20); Calcium 7.9 mg/dL (8.6-10.3); EGFR African American 152.6 (>60); EGFR Non-African American 126.1 (>60); Magnesium 1.9 mg/dL (1.9-2.7); Phosphorus 2.8 mg/dL (2.5-5.0); Potassium 3.4 mmol/L (3.5-5.0)
[2021-01-14] MEDS: D5LR 20 MEQ KCL 1000 ml BAG 1,000 ML IV SCH (06:09)
[2021-01-14] MEDS: Pantoprazole VIAL 40 MG VIAL IV SCH (07:44)
[2021-01-14 10:57] VITALS: BP 121/69
[2021-01-14] MEDS: Enoxaparin 40 MG/0.4 ML SYR SUBCUT SCH (12:08)
[2021-01-14] MEDS: cefTRIAXone 2 GM ADDV.VIAL 2 GM in NS 0.9% 100 ml BAG 100 ML IV SCH (12:11)
[2021-01-15] MEDS ORDERED: Vancomycin Trough Check NOTE FOLLOW UP ONE (05:30)
== END 2021-01-14 15:00 | disposition left against medical advice (07) | DRG 420 ==
LOC: EDBD → ED 15:05 → ICU 17:02 → MERGE 17:02 → ICU 18:29
PROVIDERS: ADMIT Surgery Surgical Critical Care; ATTEND Internal Medicine